=== PATIENT | male | born 2000 | race Caucasian/White ===

== ENCOUNTER 2022-04-22 14:49 | Emergency (ER) | payer MEDICAID | END 2022-04-22 15:18 | disposition left against medical advice (07) | LOC: DL.ED 14:49 | DX: Z53.21 Procedure and treatment not carried out due to patient leaving prior to being seen by health care provider (principal) ==

== ENCOUNTER 2024-11-18 19:26 | Emergency (ER) | payer SELFPAY ==
[2024-11-18] MEDS: Acetaminophen 325 MG Tab PO ONE (19:53)
[2024-11-18 20:22] LABS: HEMATOCRIT 45.8 % (40.0-54.0); HEMOGLOBIN 16.1 g/dL (14.0-18.0); MEAN CORPUSCULAR HEMOGLOBIN 29.7 pg (27.0-34.0); MEAN CORPUSCULAR HGB CONC 35.2 g/dL (33.0-35.0); MEAN CORPUSCULAR VOLUME 84.3 fL (80-100); RED BLOOD CELL COUNT 5.43 10^6/uL (4.6-6.2); WHITE BLOOD CELL COUNT,WBC 7.1 10^3/uL (5.0-10.0)
[2024-11-18 20:37] LABS: A/G RATIO 1.2; ALBUMIN 4.4 g/dL (3.4-5.0); ANION GAP 16.4 mEq/L (7-13); BILIRUBIN TOTAL 4.5 mg/dL (0.2-1.0); BUN/CREATININE RATIO 12.5 (No establ ref range); CALCIUM 9.3 mg/dL (8.5-10.1); CREATININE 1.12 mg/dL (0.70-1.30); EST CRCL DRUG DOSING (CG) 98.39 mL/min; POTASSIUM,K 3.4 mmol/L (3.5-5.1)
[2024-11-18] MEDS: Potassium Chloride 10 MEQ Tab.ER PO ONE (21:09)
== END 2024-11-18 21:57 | disposition home or self-care (01) ==
LOC: DL.ED 19:26
DX: S43.014A Anterior dislocation of right humerus, initial encounter (principal); X50.1XXA Overexertion from prolonged static or awkward postures, initial encounter
CPT/HCPCS: 23650; 36415; 73020; 73060; 80053; 85027; 93005; 99284; A9270; 23655; 93010